=== PATIENT | female | born 1965 | race Caucasian/White ===

== ENCOUNTER → 2021-02-03 15:15 | Outpatient (BNVA) | payer MEDICAID, SELFPAY | PROVIDERS: Family Provider Nurse Practitioner Family; PCP Nurse Practitioner Family; Visit Provider Emergency Medicine | DX: I10 Essential (primary) hypertension (principal); N93.9 Abnormal uterine and vaginal bleeding, unspecified; R60.9 Edema, unspecified; R63.4 Abnormal weight loss; R93.89 Abnormal findings on diagnostic imaging of other specified body structures | CPT/HCPCS: 80053; 81000; 83880; 84443; 85025; 86304 ==

== ENCOUNTER → 2021-02-04 14:55 | Outpatient (BNVA) | payer MEDICAID, SELFPAY | PROVIDERS: Family Provider Nurse Practitioner Family; PCP Nurse Practitioner Family; Visit Provider Emergency Medicine | DX: I10 Essential (primary) hypertension (principal); R63.4 Abnormal weight loss; R93.89 Abnormal findings on diagnostic imaging of other specified body structures | CPT/HCPCS: 71046 ==

== ENCOUNTER → 2021-10-06 11:18 | Outpatient (BNVA) | payer MEDICAID, SELFPAY | PROVIDERS: Family Provider Nurse Practitioner Family; Visit Provider Emergency Medicine | DX: M79.642 Pain in left hand (principal); R07.81 Pleurodynia | CPT/HCPCS: 71101; 73130 ==

== ENCOUNTER → 2021-10-11 12:58 | Outpatient (BNVA) | payer MEDICAID, SELFPAY | PROVIDERS: Family Provider Nurse Practitioner Family; PCP Family Medicine; Visit Provider Emergency Medicine | DX: F17.200 Nicotine dependence, unspecified, uncomplicated (principal); R05.3 Chronic cough | CPT/HCPCS: 71046 ==

== ENCOUNTER → 2021-10-20 15:42 | Outpatient (BNVA) | payer MEDICAID, SELFPAY | PROVIDERS: Family Provider Nurse Practitioner Family; PCP Family Medicine; Visit Provider Emergency Medicine | DX: R07.81 Pleurodynia (principal); W19.XXXA Unspecified fall, initial encounter; S22.31XA Fracture of one rib, right side, initial encounter for closed fracture; R05.3 Chronic cough | CPT/HCPCS: 71111 ==

== ENCOUNTER 2021-10-25 12:55 | Emergency (ER) | payer MEDICAID, SELFPAY ==
[2021-10-25 13:03] VITALS: BP 163/102; PULSE 108; RESP 14; TEMP 36.7; O2SAT 97
--- NOTE | 2021-10-25 13:16 | CT_ITS ---
WS: [id number] CT HEAD TECHNIQUE: Noncontrast CT of the head obtained from the skullbase to the vertex. CLINICAL INFORMATION: fall COMPARISON: None. DLP: 1267.[address] scans at [facility] use at least one of these dose optimization techniques: automated e xposure control; mA and/or kV adjustment per patient size (includes targeted exams where dose is matc hed to clinical indication); or iterative reconstruction. FINDINGS: No evidence of intracranial hemorrhage or mass effect. Ventricular system and basal cisterns are barrera nt. Moderate parenchymal volume loss in the frontal lobes with prominent overlying subarachnoid space s. No acute extra-axial hemorrhage. Soft tissue scalp hematoma overlying the dorsal occipital calvarium. No visualized fractures. Paranasal sinuses and mastoid air cells well aerated. CT/CT head wo con* [id number] IMPRESSION: 1. No evidence of intracranial hemorrhage or mass effect. 2. Moderate parenchymal volume loss in the frontal lobes with prominent overly ing subarachnoid spaces. No acute extra-axial hemorrhage. 3. Soft tissue scalp hematoma overlying the occipital calvarium. No underlying fractures. 4. No acute intracranial findings.
--- NOTE | 2021-10-25 13:16 | XRR_ITS ---
PROCEDURE INFORMATION: Exam: XR Ribs Exam date and time: 10/25/2021 1:26 PM Age: 56 years old Clinical indication: Injury or trauma; Fall; Rib area, bilateral; Blunt trauma TECHNIQUE: Imaging protocol: Radiologic exam of the of the ribs. Views: 3 views. Bilateral ribs. COMPARISON: CR XR ribs BI mn 4V w CXR1V [id number] 10/20/2021 3:49 PM FINDINGS: Bones/joints: Nondisplaced lateral left 5th through 9th rib fractures. Nondisplaced lateral right 4th through 8th rib fractures. Bilateral glenohumeral joint degeneration. Multilevel disc degeneration in the thoracic spine. Lungs: Mild left basilar airspace disease, potentially atelectasis though lung contusion possible given the history. Heart/Mediastinum: The cardiac silhouette is not enlarged. The mediastinal contours are normal. Calcified lymph node in the left hilum. Soft tissues: Bilateral epicardial fat pads. XR/XR ribs BI mn 4V w CXR1V [id number] IMPRESSION: 1. Multiple bilateral nondisplaced rib fractures. 2. Left basilar airspace disease, atelectasis versus lung contusion. 3. No pneumothorax.
--- NOTE | 2021-10-25 13:16 | CT_ITS ---
WS: [id number] CT CERVICAL TRAUMA TECHNIQUE: Noncontrast CT of the cervical spine with coronal and sagittal reformatted images. CLINICAL INFORMATION: fall COMPARISON: None. DLP: 1267.[address] scans at [facility] use at least one of these dose optimization techniques: automated e xposure control; mA and/or kV adjustment per patient size (includes targeted exams where dose is matc hed to clinical indication); or iterative reconstruction. FINDINGS: Straightening of the normal cervical lordosis. Mild spondylitic changes. Disc space narrowing worse a t C5-C6. Grade 1 anterolisthesis C6 on C7. Slight compression superior endplate C7 vertebral body lik lauren chronic.Normal craniocervical junction. Normal C1-C2 articulation. Dens is normal in appearance. Normal occipital condyles. No high-grade spinal canal narrowing. Normal C1 ring. No evidence of acute fracture or dislocation. Normal prevertebral soft tissues. Heterogeneous thyroid with small nodules. A few calcified nodules. This can be followed up with ultrasound on an elective basis. Mastoids air cells are well aerated. CT/CT cervical spin wo con* [id number] IMPRESSION: 1. Slight compression superior endplate C7 vertebral body likely chronic. 2. Grade 1 anterolisthesis C6 on C7. 3. No evidence of acute fracture or dislocation.
--- NOTE | 2021-10-25 16:36 | W.ED.FALL ---
HPI - Fall General: Chief Complaint: Fall Stated Complaint: Dizzy/Headache/N-possible concussion sent by dr Abdul Seen by Provider: 10/25/21 13:12 History of Present Illness: 56-year-old female patient presents to the emergency department with dizziness headache and continued rib pain. Patient was seen here a week and a half ago post fall. Patient was diagnosed with concussive head injury as well as right-sided rib fracture. Patient states her ribs still hurt and she is still having dizziness. Patient denies any fever. Patient denies any shortness of breath. Patient states she does have a slight cough. Patient denies any chest pain. Patient denies any other complaints at this time Associated symptoms-after fall: Denies abdominal pain, chest pain, confusion, difficulty walking, hematuria, lightheadedness, neck pain or vertigo Review of Systems Const: Denies: fever(s), chills, body aches, change in appetite, change in weight, fatigue, malaise or diaphoresis Eyes: Denies: change in vision, blurry vision, blind spots, photophobia, eye discomfort, eye discharge, eye redness, floaters or seeing flashes ENMT: Denies: throat pain, uvular edema, enlarged tonsils, odynophagia, hoarseness, mouth pain, swelling of lips/tongue, oral sores, bleeding gums, dental pain, dry mouth, ear or mastoid pain, ear discharge, change in hearing, tinnitus, disequilibrium, nasal discharge, nasal congestion, post nasal drip or sinus pain Card: Denies: chest pain, palpitations, irregular heart rhythm, edema, swelling of feet/ankles, lightheadedness, syncope, pre-syncope, dyspnea on exertion, orthopnea, leg pain with exertion or acrocyanosis Resp: Denies: dyspnea, productive cough, wheezing, stridor, pain on inspiration, change in phlegm color, hemoptysis or chest congestion GI: Denies: abdominal pain, nausea, vomiting, hematemesis, dysphagia, diarrhea, constipation, GI cramping, change in bowel habits or rectal pain : Denies: flank pain, difficulty voiding, dysuria, urinary frequency, urinary urgency, urinary hesitancy or hematuria Musc: Denies: neck pain, back pain, extremity pain, extremity swelling, joint pain, joint swelling, joint redness, joint warmth or deformity Skin/Breast: Denies: rash, pruritus, erythema, sores, new lesions, changes in skin color or dry skin Neuro: Reports: dizziness; Denies: numbness in extremities, weakness in extremities, sensory changes, lack of coordination, difficulty walking, frequent falls, vertigo, confusion, behavioral changes, Slurred speech present, difficulty communicating thoughts or seizure-like activity Psych: Denies: anxiety, depression, suicidal ideation or homicidal ideation Endo: Denies: polyuria, polydipsia, tired all the time, cold intolerance, excessive sweating, flushing, hot flashes or heat intolerance Kolby/Lymph: Denies: easy bruising, easy bleeding, petechiae, purpura, enlarged lymph nodes or tender lymph nodes All/Imm: Denies: urticaria, throat swelling, tongue swelling, facial swelling, acute wheezing or itchy eyes PFSH ED PFSH: Medical History Abnormal chest xray Abnormal vaginal bleeding Alcohol abuse Chronic cough Grief HTN (hypertension) Peripheral edema Smoking Female Reproductive History: Spontaneous abortions: No Physical Exam Const: COMMON NORMALS: no acute distress, patient oriented x3 and alert GENERAL APPEARANCE: cooperative, comfortable, well kempt and well developed; not ill appearing ORIENTATION/CONSCIOUSNESS: Yes awake, Yes oriented to person, Yes oriented to place and Yes oriented to time HENMT: COMMON NORMALS: normocephalic, atraumatic, hearing grossly normal bilaterally, external ears normal, EAC's normal, TM's normal bilaterally, Normal external nose present, Normal nasal mucous membranes and turbinates present and moist oral mucous membranes HEAD & SCALP: normal to inspection, normocephalic and atraumatic FACE & SINUS: normal facial exam, sinuses nontender and face symmetric NOSE: Normal external nose present, Normal nares present, Normal nasal mucous membranes and turbinates present, No nasal discharge present and Abnormal external nose present EXTERNAL EAR: Yes external ears normal and Yes mastoids normal EXTERNAL AUDITORY CANAL: EAC's normal TYMPANIC MEMBRANE: TM's normal bilaterally MOUTH: Normal oral and palatal mucosa present, lip normal, tongue normal and Normal salivary glands and ducts present THROAT: no uvular edema Eye: COMMON NORMALS: Equal, round and reactive pupils present, EOMs intact bilaterally, conjunctivae normal and no scleral icterus GENERAL EYE: appearance normal, both eyes and all related structures EYELID: eyelids normal CONJUNCTIVA: Yes conjunctivae normal SCLERA: sclerae normal CORNEA: Yes corneas normal PUPIL: Yes Equal, round and reactive pupils present Neck/C-Spine: COMMON NORMALS: full ROM, no lymphadenopathy, supple, no meningeal signs, no JVD and Thyroid normal GENERAL: Yes normal visual inspection and Yes trachea midline THYROID: Thyroid normal CERVICAL SPINE: Yes cervical ROM normal Lymph: LYMPHATIC: no lymphadenopathy noted and no lymphedema noted Chest: COMMONS NORMALS: normal inspection of the chest Resp: COMMON NORMALS: normal respiratory effort, No retractions, No use of accessory muscles and clear to auscultation bilaterally EFFORT & INSPECTION: Yes able to speak in complete sentences and Yes symmetric chest movement AUSCULTATION: clear to auscultation bilaterally Cardio: COMMON NORMALS: no JVD, regular rate and regular rhythm RATE: regular rate RHYTHM: regular rhythm GI: COMMON NORMALS: Normal to inspection, nondistended, normoactive bowel sounds present, Soft to palpation, non-tender, No hepatosplenomegaly present, no masses and no bruits INSPECTION: Yes normal to inspection AUSCULTATION: Yes normoactive bowel sounds PALPATION: Yes Soft to palpation and Yes No hepatosplenomegaly present PERCUSSION: normal to percussion RECTAL EXAM: deferred : COMMON NORMALS: Yes no CVA tenderness, Yes normal external appearance, Yes normal appearance of the vagina, Yes normal appearance of the cervix, Yes normal bimanual exam, Yes No adnexal tenderness and Yes no masses BLADDER/KIDNEY EXAM: Yes no CVA tenderness BIMANUAL EXAM - VAGINA & UTERUS: Yes normal bimanual exam Back/Pelvis: COMMON NORMALS: no CVA tenderness, thoracic and lumbar spine normal to inspection, no thoracic nor lumbar tenderness, thoraco-lumbar ROM normal and straight leg raise negative bilaterally THORACIC SPINE/UPPER BACK: Yes normal to inspection LUMBAR SPINE/LOWER BACK: Yes normal to inspection Extremity: COMMON NORMALS: normal to inspection, full ROM and capillary refill normal GENERAL: Yes normal exam except as noted Neuro: COMMON NORMALS: patient oriented x3, CN's II-XII intact bilaterally, moves all extremities, no focal motor deficits, no sensory deficits noted and gait normal SENSORIUM/ORIENTATION: Yes alert, Yes oriented to person, Yes oriented to place and Yes oriented to time MENINGEAL SIGNS: Yes no meningeal signs CRANIAL NERVES: Yes CN normal except as noted SPEECH: speech normal GAIT: Yes Normal gait present SENSORY EXAM: Yes extremities Psych: COMMON NORMALS: mental status grossly normal, Normal thought process present, cooperative, normal affect, speech normal, activity/motor behavior normal, denies hallucinations, denies homicidal ideation and denies suicidal ideation APPEARANCE: Yes grossly normal and Yes well kempt ATTITUDE: Yes calm ACTIVITY/MOTOR BEHAVIOR: Yes appropriate eye contact SPEECH: Yes normal speech THOUGHT PROCESS: Normal thought process present THOUGHT CONTENT: Yes Normal thought content present ATTENTION/CONCENTRATION: Yes attention grossly intact MEMORY/COGNITION: Yes memory grossly intact INSIGHT: Good insight present (Psych) JUDGEMENT: Good judgement present (Psych) Skin: COMMON NORMALS: no rashes or lesions noted, no wounds, turgor normal, no jaundice, no petechiae and no mottling GENERAL SKIN EXAM: no rashes or lesions noted and turgor normal Course Vital Signs: Vital signs: Vital Signs Temperature 98.1 F 10/25/21 13:03 Pulse Rate 108 H 10/25/21 13:03 Respiratory Rate 14 10/25/21 13:03 Blood Pressure 163/102 10/25/21 13:03 Pulse Oximetry 97 10/25/21 13:03 Oxygen Delivery Me thod 10/25/21 13:03 MDM - Fall Medical Decision Making Patient is well-appearing nontoxic and in no acute distress.56-year-old female patient presents to the emergency department with dizziness headache and continued rib pain. Patient was seen here a week and a half ago post fall. Patient was diagnosed with concussive head injury as well as right-sided rib fracture. Patient states her ribs still hurt and she is still having dizziness. Patient denies any fever. Patient denies any shortness of breath. Patient states she does have a slight cough. Patient denies any chest pain. Patient denies any other complaints at this time patient does not have any neurofocal deficits noted. Patient's lungs are clear to auscultate. Patient's vital signs are stable. Patient's cervical CT spine does show a slight compression to the superior endplate of C7 this is chronic in nature. There is no evidence of any acute fracture or dislocation. CT head is negative for any acute findings. Patient does have multiple bilateral non but displaced rib fracture. There is what appears to be a lung contusion to the left lung there is no pneumothorax present. I will send patient home with a spirometer with instructions on how to use. I will also send patient home with some pain medications. I have advised patient she needs to follow-up with her primary care in 3 days for recheck. Lab Data Radiology Impressions Cervical Spine CT 10/25/21 13:16 IMPRESSION: 1. Slight compression superior endplate C7 vertebral body likely chronic. 2. Grade 1 anterolisthesis C6 on C7. 3. No evidence of acute fracture or dislocation. Head CT 10/25/21 13:16 IMPRESSION: 1. No evidence of intracranial hemorrhage or mass effect. 2. Moderate parenchymal volume loss in the frontal lobes with prominent overlying subarachnoid spaces. No acute extra-axial hemorrhage. 3. Soft tissue scalp hematoma overlying the occipital calvarium. No underlying fractures. 4. No acute intracranial findings. Ribs w/Chest X-Ray 10/25/21 13:16 IMPRESSION: 1. Multiple bilateral nondisplaced rib fractures. 2. Left basilar airspace disease, atelectasis versus lung contusion. 3. No pneumothorax. Discharge Plan Discharge Patient Disposition: Home Clinical Impression: Fracture, ribs Condition: Stable Prescriptions: New Percocet 5-325 mg tablet 1 tab PO Q8H PRN (Reason: pain) Qty: 9 0RF No Action amitriptyline 50 mg tablet 100 mg PO DAILY tramadol 50 mg tablet 50 mg PO Q6H PRN (Reason: pain) Qty: 20 0RF Combivent Respimat 20-100 mcg/actuation mist 1 puff inhalation Q6H Qty: 4 2RF Rx Instructions: chronic cough varenicline [Chantix Starting Month Box] 0.5 mg (11)- 1 mg (42) tablets,dose pack See Rx Instructions PO PER PKG DIR Qty: 53 0RF Rx Instructions: PO PER PKG DIR tramadol 100 mg tablet 100 mg PO Q6H PRN (Reason: rib fracture pain) Qty: 20 0RF Discharge Orders: Discharge ED (Routine); Ordered 10/25/21 Ordered By: Alysha Bustos Referrals: Chava Phillips DO [Primary Care Provider] - Discharge Diet: Advance as tolerated Discharge Activity: Increase activity as tolerated Patient Instructions: Opioid Safety Activity Restrictions/Additional Instructions: Please use spirometer as directed Please do not drive or operate heavy machinery while taking pain medications Follow up with PCP in 2-3 days Return to ER with any worsening of condition Coding Level of Care Code ED Corporate Compliance Director for Katie Wade
== END 2021-10-25 16:20 | disposition home or self-care (01) ==
PROVIDERS: Emergency Provider Registered Nurse; PCP Family Medicine
DX: S22.43XD Multiple fractures of ribs, bilateral, subsequent encounter for fracture with routine healing (principal); W19.XXXD Unspecified fall, subsequent encounter
CPT/HCPCS: 70450; 71111; 72125; 99284

== ENCOUNTER → 2021-12-20 08:57 | Outpatient (BNVA) | payer MEDICAID, SELFPAY | PROVIDERS: PCP Family Medicine; Visit Provider Otolaryngology | DX: H81.10 Benign paroxysmal vertigo, unspecified ear (principal); F17.200 Nicotine dependence, unspecified, uncomplicated | CPT/HCPCS: 99203 ==

== ENCOUNTER → 2023-06-22 14:41 | Outpatient (BNVA) | payer MEDICAID, SELFPAY | PROVIDERS: PCP Family Medicine; Visit Provider Emergency Medicine | DX: M25.551 Pain in right hip (principal); Z96.641 Presence of right artificial hip joint | CPT/HCPCS: 73502 ==

== ENCOUNTER → 2024-01-21 13:33 | Outpatient (BNVA) | payer MEDICAID, SELFPAY | PROVIDERS: PCP Nurse Practitioner; Visit Provider Nurse Practitioner | DX: I10 Essential (primary) hypertension (principal) | CPT/HCPCS: 80053; 80061; 84443; 85025 ==

== ENCOUNTER → 2024-04-28 16:02 | Outpatient (BNVA) | payer MEDICAID, SELFPAY | PROVIDERS: PCP Nurse Practitioner; Visit Provider Nurse Practitioner | DX: R50.9 Fever, unspecified (principal) | CPT/HCPCS: 87400; 87426 ==

== ENCOUNTER → 2024-06-16 10:56 | Outpatient (BNVA) | payer MEDICAID, SELFPAY | PROVIDERS: PCP Nurse Practitioner; Visit Provider Nurse Practitioner | DX: R05.3 Chronic cough (principal); I51.7 Cardiomegaly | CPT/HCPCS: 71046 ==

== ENCOUNTER 2024-10-01 11:54 | Outpatient (CLI) | payer MEDICAID, SELFPAY ==
--- NOTE | 2024-10-01 12:00 | MM_ITS ---
WS: [id number] BILATERAL 3D TOMOSYNTHESIS DIGITAL SCREENING MAMMOGRAPHY WITH CAD CLINICAL INFORMATION: Z12.39 - Encounter for other screening for malignant neop... HISTORY: Screening mammogram. No current complaints. COMPARISON: New baseline TECHNIQUE: Bilateral CC and MLO views. FINDINGS: Scattered fibroglandular densities bilaterally. No suspicious focal mass, asymmetry, calcifications, or architectural distortion. No evidence of malignancy. MM/MM scr BI tomosynthesis [id number] IMPRESSION: DENSITY: There are scattered areas of fibroglandular density. BI-RADS: 2 - Benign. FOLLOW UP: 1 Year Follow-up Recommend return to annual screening mammography.
== END 2024-10-01 11:55 | disposition home or self-care (01) ==
PROVIDERS: PCP Nurse Practitioner; Visit Provider Nurse Practitioner
DX: Z12.31 Encounter for screening mammogram for malignant neoplasm of breast (principal); R92.323 Mammographic fibroglandular density, bilateral breasts
CPT/HCPCS: 77063; 77067

== ENCOUNTER → 2024-10-16 10:58 | Outpatient (BNVA) | payer MEDICAID, SELFPAY | PROVIDERS: PCP Nurse Practitioner; Visit Provider Nurse Practitioner Women's Health | DX: Z01.419 Encounter for gynecological examination (general) (routine) without abnormal findings (principal) | CPT/HCPCS: 87624 ==

== ENCOUNTER → 2024-11-24 09:46 | Outpatient (BNVA) | payer MEDICAID, SELFPAY | PROVIDERS: PCP Nurse Practitioner; Visit Provider Dermatology | DX: B35.3 Tinea pedis (principal); B35.1 Tinea unguium; S00.86XA Insect bite (nonvenomous) of other part of head, initial encounter; X58.XXXA Exposure to other specified factors, initial encounter; L85.3 Xerosis cutis; L82.1 Other seborrheic keratosis; W89.1XXA Exposure to tanning bed, initial encounter; L56.5 Disseminated superficial actinic porokeratosis (DSAP) | CPT/HCPCS: 17000; 99203 ==

== ENCOUNTER → 2024-12-23 09:55 | Outpatient (BNVA) | payer MEDICAID, SELFPAY | PROVIDERS: PCP Nurse Practitioner; Visit Provider Surgery | DX: K46.9 Unspecified abdominal hernia without obstruction or gangrene (principal); R13.10 Dysphagia, unspecified | CPT/HCPCS: 99204 ==